=== PATIENT | male | born 1955 | race Caucasian/White ===

== ENCOUNTER 2018-07-02 10:20 | Observation (INO) | payer OTHER ==
[2018-07-02 10:42] LABS: ADD MAN DIFF? NO
[2018-07-02 10:44] LABS: WHITE BLOOD COUNT 10.5 10^3/ul (4.8-10.8)
[2018-07-02 10:44] LABS: BASOPHIL # 0.1 10^3/ul (0.0-0.1); BASOPHILS % 0.6 % (0.0-2.0); EOSINOPHILS # 0.1 10^3/ul (0.0-0.5); EOSINOPHILS % 0.8 % (0.0-7.0); HEMATOCRIT 42.2 % (42.0-52.0); HEMOGLOBIN 13.6 g/dl (14.0-18.0); LYMPHOCYTES % 37.5 % (15.0-51.0); MEAN CORPUSCULAR HEMOGLOBIN 29.6 pg (29.0-33.0); MEAN CORPUSCULAR HGB CONC 32.2 g/dl (32.0-37.0); MEAN CORPUSCULAR VOLUME 91.9 fl (82.0-101.0); MEAN PLATELET VOLUME 10.1 fl (7.4-10.4); MONOCYTE # 0.6 10^3/ul (0.3-0.9); MONOCYTES % 5.6 % (0.0-11.0); NEUTROPHIL # 5.8 10^3/ul (1.6-7.5); NEUTROPHILS % 54.7 % (39.0-77.0); PLATELET COUNT 263 10^3/UL (140-415); RED BLOOD COUNT 4.59 10^6/ul (4.70-6.10); RED CELL DISTRIBUTION WIDTH 13.7 % (11.5-14.5)
[2018-07-02] MEDS: SOD CHLORIDE 0.9% 500 ML IV (11:13)
[2018-07-02 11:15] LABS: ALANINE AMINOTRANSFERASE 18 IU/L (13-69); ALBUMIN 5.1 g/dl (3.3-4.9); ALBUMIN/GLOBULIN RATIO 1.59; ALKALINE PHOSPHATASE 73 IU/L (42-121); ANION GAP 21 (5-13); ASPARTATE AMINO TRANSFERASE 23 IU/L (15-46); BILIRUBIN,INDIRECT 0.1 mg/dl (0-1.1); BILIRUBIN,TOTAL 0.1 mg/dl (0.2-1.3); BLOOD UREA NITROGEN 12 mg/dl (7-20); CARBON DIOXIDE 20 mmol/L (21-31); CHLORIDE 103 mmol/L (97-110); CREATININE 0.82 mg/dl (0.61-1.24); Estimated GFR > 60 mL/min (>60); GLUCOSE 112 mg/dl (70-220); POTASSIUM 3.7 mmol/L (3.5-5.1); SODIUM 144 mmol/L (135-144); TOTAL PROTEIN 8.3 g/dl (6.1-8.1)
[2018-07-02 11:27] LABS: TROPONIN-I < 0.012 ng/ml (0.000-0.120)
[2018-07-02 11:28] LABS: ADD UMIC YES; UR ASCORBIC ACID NEGATIVE (NEGATIVE); UR BILIRUBIN (Dip) NEGATIVE (NEGATIVE); UR BLOOD (Dip) 1+ mg/dL (NEGATIVE); UR CLARITY CLEAR (CLEAR); UR COLOR YELLOW (YELLOW); UR GLUCOSE (Dip) NEGATIVE (NEGATIVE); UR KETONES (Dip) NEGATIVE (NEGATIVE); UR LEUKOCYTE ESTERASE (Dip) NEGATIVE Leu/ul (NEGATIVE); UR NITRITE (Dip) NEGATIVE (NEGATIVE); UR RBC 3 /HPF (0-5); UR SPECIFIC GRAVITY (Dip) 1.016 (1.003-1.030); UR TOTAL PROTEIN (Dip) 1+ mg/dl (NEGATIVE); UR UROBILINOGEN (Dip) NEGATIVE (NEGATIVE); UR WBC 2 /HPF (0-5)
[2018-07-02 11:32] LABS: FREE THYROXINE INDEX (Calc) 1.22 ug/ml (0.65-3.89); T3 UPTAKE 26.6 % (23.5-40.5); T4 (THYROXINE) 4.6 ug/dl (5.5-11.0)
[2018-07-02 11:55] LABS: AMPHETAMINE/METHAMPHETAMINE Negative (NEGATIVE); BARBITURATES Negative (NEGATIVE); BENZODIAZEPINES Negative (NEGATIVE); CANNABINOIDS Negative (NEGATIVE); COCAINE Negative (NEGATIVE); OPIATES Negative (NEGATIVE)
[2018-07-02 11:56] LABS: INR 0.94; PROTIME 12.7 Sec (11.9-14.9)
[2018-07-02 11:57] LABS: ETHANOL < 10.0 mg/dl (0-0); PARTIAL THROMBOPLASTIN TIME 26.7 Sec (23.0-35.0)
[2018-07-02] MEDS ORDERED: ACETAMINOPHEN 325 MG TAB PO ×2 (12:30→13:00)
[2018-07-02] MEDS ORDERED: ONDANSETRON 4 MG INJ IV ×2 (12:30→13:00)
[2018-07-02] MEDS ORDERED: HYDROCODONE/APAP (5/325) TAB PO (13:00)
[2018-07-02] MEDS ORDERED: DOCUSATE SODIUM 100 MG CAP PO (13:00)
[2018-07-02] MEDS ORDERED: NACL 0.9% 3 ML SYG IV (13:00)
[2018-07-02] MEDS ORDERED: ZOLPIDEM 5 MG TAB PO (13:00)
[2018-07-02] MEDS ORDERED: morphine 2 MG INJ IV (13:00)
[2018-07-02] MEDS: NICOTINE (7 MG/24 HR) PATCH TRANSDERM (13:11)
[2018-07-02] MEDS: SOD CHLORIDE 0.9% 1,000 ML IV ×2 (13:34→22:36)
[2018-07-02] MEDS: NICOTINE (21 MG/24 HR) PATCH TRANSDERM (14:43)
[2018-07-02 14:59] LABS: LACTIC ACID 1.7 mmol/L (0.5-2.0)
[2018-07-03] MEDS: SOD CHLORIDE 0.9% 1,000 ML IV (02:45)
[2018-07-03 05:22] LABS: ADD MAN DIFF? NO
[2018-07-03 05:41] LABS: BASOPHILS % 0.4 % (0.0-2.0); EOSINOPHILS # 0.1 10^3/ul (0.0-0.5); EOSINOPHILS % 0.7 % (0.0-7.0); HEMATOCRIT 35.6 % (42.0-52.0); HEMOGLOBIN 11.9 g/dl (14.0-18.0); LYMPHOCYTES # 1.5 10^3/ul (0.8-2.9); MEAN CORPUSCULAR HEMOGLOBIN 30.4 pg (29.0-33.0); MEAN CORPUSCULAR HGB CONC 33.4 g/dl (32.0-37.0); MEAN CORPUSCULAR VOLUME 90.8 fl (82.0-101.0); MEAN PLATELET VOLUME 10.2 fl (7.4-10.4); MONOCYTE # 0.5 10^3/ul (0.3-0.9); MONOCYTES % 5.4 % (0.0-11.0); NEUTROPHIL # 6.8 10^3/ul (1.6-7.5); NEUTROPHILS % 76.1 % (39.0-77.0); PLATELET COUNT 215 10^3/UL (140-415); RED BLOOD COUNT 3.92 10^6/ul (4.70-6.10); RED CELL DISTRIBUTION WIDTH 13.7 % (11.5-14.5)
[2018-07-03 05:41] LABS: WHITE BLOOD COUNT 8.9 10^3/ul (4.8-10.8)
[2018-07-03 05:46] LABS: HEMOGLOBIN A1C 5.3 % (0-5.9)
[2018-07-03 06:08] LABS: ANION GAP 13 (5-13); BLOOD UREA NITROGEN 11 mg/dl (7-20); CALCIUM 9.4 mg/dl (8.4-10.2); CARBON DIOXIDE 24 mmol/L (21-31); CHLORIDE 106 mmol/L (97-110); CHOL/HDL RATIO 4.3 RATIO; CHOLESTEROL 189 mg/dl (100-200); CREATININE 0.81 mg/dl (0.61-1.24); Estimated GFR > 60 mL/min (>60); GLUCOSE 96 mg/dl (70-220); HDL CHOLESTEROL 43 mg/dl (30-78); LDL CHOLESTEROL,CALCULATED 120 mg/dl; MAGNESIUM 1.7 mg/dl (1.7-2.5); PHOSPHORUS 3.8 mg/dl (2.5-4.9); POTASSIUM 4.4 mmol/L (3.5-5.1); SODIUM 143 mmol/L (135-144); TRIGLYCERIDES 128 mg/dl (0-149)
[2018-07-03 06:20] LABS: FREE THYROXINE INDEX (Calc) 1.18 ug/ml (0.65-3.89); T3 UPTAKE 30.2 % (23.5-40.5); T4 (THYROXINE) 3.9 ug/dl (5.5-11.0)
[2018-07-03] MEDS: NICOTINE (21 MG/24 HR) PATCH TRANSDERM (08:35)
== END 2018-07-03 17:02 | disposition home or self-care (01) ==
LOC: E/R 10:20 → 6WM 13:41
PROVIDERS: Internal Medicine
DX: R55 Syncope and collapse (principal); R41.82 Altered mental status, unspecified; G45.4 Transient global amnesia; F17.290 Nicotine dependence, other tobacco product, uncomplicated; E87.2 Acidosis
CPT/HCPCS: 36415; 70450; 71045; 80048; 80053; 80061; 80307; 81001; 82962; 83036; 83605; 83735; 84100; 84436; 84479; 84484; 85025; 85610; 85730; 90686; 93005; 93306; 96360; 99285-25; G0378